=== PATIENT | male | born 1975 | race Caucasian/White ===

== ENCOUNTER 2021-04-15 08:12 | Inpatient (IN) | payer MEDICAID, SELFPAY ==
[2021-04-15] VITALS (8 sets, daily range): BP systolic 110–137; BP diastolic 68–91; PULSE 79–145; RESP 16–22; TEMP 36.4–37; O2SAT 96–99; BMI 26.4
--- NOTE | ~2021-04-15 | XR_ITS ---
EXAMINATION: XR CHEST CLINICAL INFORMATION: EtOH withdrawal COMPARISON: None TECHNIQUE: Frontal view of the chest was obtained. FINDINGS: No significant abnormality is noted involving the heart, lungs, mediastinum, bony thorax or soft tissues. XR/XR chest 1V IMPRESSION: Unremarkable chest examination.
--- NOTE | ~2021-04-15 | CT_ITS ---
EXAMINATION: CT HEAD WITHOUT CONTRAST CLINICAL INFORMATION: Status post seizure. COMPARISON: None TECHNIQUE: Contiguous axial imaging was performed from the skull base to vertex without intravenous administration of contrast. This CT examination was performed using dose optimization techniques as appropriate, variously including the following: *Automated exposure control *Adjustment of mA and/or kV according to patient size (this includes techniques or standardized protocols for targeted exams where dose is matched to indication/reason for exam; i.e. extremities or head) *Use of iterative reconstruction technique DLP: 714 mGy-cm FINDINGS: There is no evidence of acute intracranial hemorrhage or territorial infarction. No abnormal mass effect or midline shift is seen. Morgan to white matter differentiation is well preserved. No extra-axial fluid collections are identified. The ventricles are normal in size. There is no abnormal attenuation within the brain parenchyma. The osseous structures and soft tissues are normal. The mastoid air cells and visualized portions of the paranasal sinuses are well aerated. CT/CT head/brain wo con IMPRESSION: No acute intracranial process seen.
--- NOTE | 2021-04-15 08:21 | ECG_ITS ---
Test Reason : ETOH Blood Pressure : / mmHG Vent. Rate : 137 BPM Atrial Rate : 137 BPM P-R Int : 126 ms QRS Dur : 074 ms QT Int : 288 ms P-R-T Axes : 044 044 049 degrees QTc Int : 434 ms Sinus tachycardia Otherwise normal ECG When compared with ECG of 09-APR-2017 13:28, Heart rate has increased Referred By: Nicolette Reyes Electronically Signed By:FELICITY FIELD
--- NOTE | 2021-04-15 08:26 | ED.SEIZURE ---
HPI - Seizure General Chief Complaint: Seizure Stated Complaint: SEIZURE Time Seen by Provider: 04/15/21 08:20 Source: patient and EMS Mode of arrival: EMS Limitations: no limitations History of Present Illness HPI Narrative: 45-year-old male who drinks alcohol on a regular basis and known to alcohol withdrawal seizure, last alcohol drink was 2 days ago, patient brought in for evaluation of witnessed tonic-clonic seizure by his family. With postictal confusion, patient emergency department started to regain his consciousness becoming more coherent, patient is withdrawing on alcohol with tremors and tongue fasciculation. Patient declined headache, or neck pain. Related Data Allergies Allergy/AdvReac Type Severity Reaction Status Date / Time No Known Allergies Allergy Verified 04/15/21 08:42 [No Known Allergies*] Review of Systems Review of Systems: All other systems are reviewed and are negative Constitutional: Reports as per HPI and Reports no additional constitutional complaints Eyes: Reports as per HPI and Reports no additional eye complaints Reports system reviewed and no additional complaints, except as documented Cardiovascular: Reports as per HPI and Reports no additional cardiovascular complaints Respiratory: Reports as per HPI and Reports no additional respiratory complaints Gastrointestinal: Reports as per HPI and Reports no additional gastrointestinal complaints Genitourinary: Reports no additional female genitourinary complaints Musculoskeletal: Reports no additional musculoskeletal complaints Skin/Breast: Reports system reviewed and no additional complaints, except as docu Psychiatric: Reports no additional psychiatric complaints Endocrine: Reports no additional endocrine complaints Hematologic/Lymphatic: Reports no additional hematologic/lymphatic complaints Allergic/Immunologic: Reports no additional allergic/immunologic complaints Reports system reviewed and no additional complaints, except as documented and Reports Abnormal speech present [facility] Past Medical History Medical History (Updated 04/15/21 @ 10:07 by Nicolette Reyes MD) Neuropathy No known health problems Social History Social History Alcohol intake: current Alcohol type: beer and hard liquor Use of substances other than those prescribed or required for medical reasons: No Advance Directives: No Advance Directives Information Provided: Yes Physical Exam Vital Signs: Vital Signs: Last Vital Signs Temp 98.5 F 04/15/21 08:38 Pulse 135 H 04/15/21 09:19 Resp 18 04/15/21 09:19 BP 133/91 H 04/15/21 08:38 Pulse Ox 96 04/15/21 09:19 Body Mass Index 26.4 Vital signs have been reviewed as appeared to be correct. Blood pressure normal. Heart rate normal. Respiration rate normal. Temperature normal. Oxygen saturation normal. Appearance: Alert. Oriented X3. No acute distress. Head: Normal external exam. Normocephalic. Atraumatic. No Cespedes signs noted. No raccoon eyes noted Eyes: PERRLA. EOMI. Conjunctiva and sclera normal. Eyelids normal. ENT: TM's Normal. Pharynx normal. Uvula midline. Moist mucous membranes. No trismus noted. No drooling noted. No muffled voice noted. Neck: Normal inspection. Neck supple. FROM. No adenopathy. Thyroid Normal. No meningeal signs. No neck mass noted. CVS: Normal heart rate and rhythm. Heart sound normal. No murmurs noted. Pulses normal throughout. Respiratory: No respiratory distress. Painless inspiration. Breath sounds normal. No wheezes/rales/rhonchi noted. Chest nontender. No accessory muscle usage noted or decreased air movement noted. Abdomen: Soft and nontender. Bowel sounds normal in all 4 quadrants. No distention noted. No organomegaly noted. No visible injury noted. Back: No CVA tenderness. Full range of motion noted. Skin: Skin warm and dry. Normal skin color. Normal skin turgor. No rashes/lesions/lacerations noted. Extremities: No lower extremity edema. Extremities exhibit normal range of motion. Extremities nontender. Neuro: Oriented X 3. Cranial nerve exam: II-XII are grossly intact No motor deficit. No sensory deficit. Reflexes normal. Course Course Course Narrative: Assessment and plan. 45-year-old male with history of alcohol withdrawal, patient presented with 2 days of not drinking alcohol (patient normally a daily drinker) patient has witnessed seizure by his family. Start the patient on phenobarb and admit for alcohol withdrawal. MDM - Seizure Lab Data Attestation: I reviewed the patient's lab results. Result diagrams: 04/15/21 08:55 04/15/21 08:56 Labs: Lab Results 04/15/21 04/15/21 04/15/21 Range/Units 08:55 08:55 08:56 WBC 7.0 (4.8-10.8) X10*3/uL RBC 3.55 L (4.60-5.80) X10*6/uL Hgb 10.8 L (14.0-18.0) g/dl Hct 31.8 L (42-52) % MCV 89.6 (80-98) fL MCH 30.4 (27.0-33.0) pg MCHC 34.0 (31.0-36.0) g/dl RDW 16.4 H (11.0-16.0) % Plt Count 116 L (160-400) X10*3/uL MPV 9.6 (9.4-12.4) fL Immature Gran % (Auto) 0.3 (0.0-0.4) % Neut % (Auto) 81.6 H (45-73) % Lymph % (Auto) 13.2 L (20-40) % [place] % (Auto) 4.7 (2-11) % Eos % (Auto) 0.1 (0-4) % Baso % (Auto) 0.1 (0-2) % Lymph # (Auto) 0.9 L (1.2-4.9) X10*3/uL [place] # (Auto) 0.3 (0.1-1.2) X10*3/uL Eos # (Auto) 0.0 (0.0-0.4) X10*3/uL Baso # (Auto) 0.0 (0.0-0.2) X10*3/uL Abs Immat Gran (auto) 0.02 (0.00-0.03) X10*3/uL Absolute Neuts (auto) 5.7 (2.0-8.3) X10*3/uL Absolute Nucleated RBC 0.000 (0.0-0.012) X10*3/uL Nucleated RBC % (auto) 0.0 (0.0-0.2) /100WBC Sodium 140 (135-145) mmol/L Potassium 3.9 (3.3-5.1) mmol/L Chloride 101 (96-108) mmol/L Carbon Dioxide 22 (22-29) mmol/L Anion Gap 21 H (12-20) BUN 6 L (9-16) mg/dL Creatinine 0.87 (0.5-1.4) mg/dL Estim Creat Clear Calc 115.4 Estimated GFR > 60 Random Glucose 188 H (60-115) mg/dL Calcium 10.1 (8.4-10.2) mg/dL Total Bilirubin 1.0 (0.0-1.0) mg/dL Direct Bilirubin 0.4 (0.0-0.5) mg/dL AST 33 (5-37) U/L ALT 19 (0-40) U/L Alkaline Phosphatase 110 (39-117) U/L Total Protein 7.8 (6.5-8.0) g/dL Albumin 4.3 (3.5-5.0) g/dL Lipase 33 (8-78) U/L Ethyl Alcohol < 10 mg/dL Imaging Data Chest x-ray: Radiologist's impression: Unremarkable exam of her chest. ECG Data Interpretation: Sinus tachycardia at 137 beats per minutes, normal axis deviation, normal intervals, nonspecific T-wave changes. Discharge Plan Discharge Clinical Impression: Alcohol withdrawal, Seizure Patient Disposition: Admitted As Inpatient
[2021-04-15] MEDS: 0.9 % Sodium Chloride 1,000 ML 999 ML IVCONT (08:32)
[2021-04-15] MEDS: LORazepam 2 MG/ML VIAL IVPUSH (08:32)
[2021-04-15] MEDS: ondansetron HCL 4 MG/2 ML VIAL IVPUSH (08:32)
[2021-04-15 08:59] LABS: MANUAL DIFF FLAG NO
[2021-04-15 09:02] LABS: Basophils Percent Auto 0.1 % (0-2); Eosinophils Percent Auto 0.1 % (0-4); Hematocrit 31.8 % (42-52); Hemoglobin 10.8 g/dl (14.0-18.0); Imm Gran Abs Auto 0.02 X10*3/uL (0.00-0.03); Imm Gran Pct Auto 0.3 % (0.0-0.4); Lymphocytes Absolute Auto 0.9 X10*3/uL (1.2-4.9); Lymphocytes Percent Auto 13.2 % (20-40); Mean Corpuscular Hemoglobin 30.4 pg (27.0-33.0); Mean Corpuscular Volume 89.6 fL (80-98); Mean Platelet Volume 9.6 fL (9.4-12.4); Monocytes Absolute Auto 0.3 X10*3/uL (0.1-1.2); Monocytes Percent Auto 4.7 % (2-11); Neutrophils Absolute Auto 5.7 X10*3/uL (2.0-8.3); Neutrophils Percent Auto 81.6 % (45-73); Platelet Count 116 X10*3/uL (160-400); Red Blood Count 3.55 X10*6/uL (4.60-5.80); Red Cell Distribution Width 16.4 % (11.0-16.0)
[2021-04-15 09:24] LABS: Ethanol < 10 mg/dL
[2021-04-15 09:29] LABS: Alanine Aminotransferase 19 U/L (0-40); Albumin Level 4.3 g/dL (3.5-5.0); Alkaline Phosphatase 110 U/L (39-117); Anion Gap 21 (12-20); Aspartate Amino Transferase 33 U/L (5-37); Bilirubin Direct 0.4 mg/dL (0.0-0.5); Blood Urea Nitrogen 6 mg/dL (9-16); Calcium 10.1 mg/dL (8.4-10.2); Carbon Dioxide 22 mmol/L (22-29); Chloride 101 mmol/L (96-108); Creatinine Clr Calc Pharmacy 115.4; Estimated Glomerular Filt Rate > 60; Glucose Random 188 mg/dL (60-115); Lipase 33 U/L (8-78); Potassium 3.9 mmol/L (3.3-5.1); Sodium 140 mmol/L (135-145); Total Protein 7.8 g/dL (6.5-8.0)
[2021-04-15] MEDS: PHENobarbitaL sodium 130 MG/ML VIAL 300 MG IM (09:42)
--- NOTE | 2021-04-15 09:59 | PC.NURSE ---
On arrival pt noted to be diaphoretic and shaking, vomiting and tachycardic with HR 140s. States last ETOH 2 days ago but pt is somewhat unsure of last drink. Attempting to detox at home per pt. Pt medicated as charted and now appears less symptomatic at this time, less shaking noted and no diaphoresis. Phenobarb protocol initiated as charted. Drinking water, fluids continue to infuse. Remains tachycardic HR 122.
[2021-04-15 10:51] LABS: Influenza A PCR NEGATIVE (Negative); Influenza B PCR NEGATIVE (Negative); Resp Syncy Virus RNA Qual PCR NEGATIVE (Negative); SARS COV2 PCR INHOUSE NEGATIVE (Negative)
--- NOTE | 2021-04-15 11:35 | PC.NURSE ---
patient a&o, watching tv, calm/complaint, pt given large pitcher of water per pt request, equipment monitor phototypesetting sinus tach, vitals otherwise stable, will continue to monitor.
[2021-04-15 11:42] LABS: Magnesium 1.2 mg/dL (1.6-2.6)
[2021-04-15] MEDS: PHENobarbitaL sodium 130 MG/ML VIAL 225 MG IM ×2 (12:46→16:27)
--- NOTE | 2021-04-15 13:33 | P.HPHOSP_ITS ---
History of Present Illness Date of Service: 04/15/21 Chief Complaint: seizure History obtained from the patient as well as his mother by telephone. 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 Brought in by ambulance after a witnessed generalized seizure with LOC and postictal confusion per his family. No head trauma. By the time he arrived in the ED, his mental status returned to baseline but he was noted to be tremlous with tongue fasciculations and is thus being admitted for severe EtOH withdrawal. Denies fever, chills, headache, neck pain, dyspnea, cough, chest pain, nausea, vomiting, abd pain, or GI bleeding. He was started on phenobarbital load in the ED after getting 2mg of IV lorazepam and 1L of NS. Per his mother, last admission for EtOH withdrawal was in January at [facility]. He's been in court-mandated rehabilitation as well. He denies any other substance abuse. Review of Systems Review of Systems: Yes all other systems are reviewed and are negative PMFSH Medical History Neuropathy No known health problems Pertinent family history: no epilepsy Social History Alcohol intake: current Alcohol type: beer and hard liquor Use of substances other than those prescribed or required for medical reasons: No Advance Directives: No Advance Directives Information Provided: Yes Narrative: Pt on disability Meds Allergies Allergy/AdvReac Type Severity Reaction Status Date / Time No Known Allergies Allergy Verified 04/15/21 08:42 [No Known Allergies*] Active Medications: Current Medications Generic Name Dose Route Start Last Admin Trade Name Freq PRN Reason Stop Dose Admin Acetaminophen 650 mg 04/15/21 13:26 Acetaminophen 325 Mg Tablet PO Q6H PRN Pain, Mild (Pain Scale 1-3) Clonidine HCl 0.1 mg 04/15/21 13:30 Clonidine Hcl 0.1 Mg Tablet PO Q6H [facility] Protocol Enoxaparin Sodium 40 mg 04/15/21 13:30 Enoxaparin Sodium 40 Mg/0.4 Ml Syringe SUBCUT Q24H [facility] Folic Acid 1 mg 04/16/21 09:00 Folic Acid 1 Mg Tablet PO DAILY [facility] Gabapentin 600 mg 04/15/21 15:00 Gabapentin 300 Mg Capsule PO TID [facility] Medication 1 each 04/16/21 09:00 No Benzodiazepines MISCELLANE DAILY [facility] Multivitamins/Vitamin C 1 tab 04/16/21 09:00 Multivitamin Tablet PO DAILY [facility] Naltrexone HCl 50 mg 04/15/21 21:00 Naltrexone Hcl 50 Mg Tablet PO BEDTIME [facility] Non-Formulary Medication 1 tab 04/16/21 09:00 Pantoprazole PO DAILY [facility] Ondansetron HCl 4 mg 04/15/21 13:26 Ondansetron Hcl 4 Mg/2 Ml Vial IVPUSH Q8H PRN Nausea and Vomiting Phenobarbital 60 mg 04/16/21 09:00 Phenobarbital 30 Mg Tablet PO 04/17/21 21:01 BID [facility] Phenobarbital 30 mg 04/18/21 09:00 Phenobarbital 30 Mg Tablet PO 04/19/21 21:01 BID [facility] Phenobarbital 30 mg 04/20/21 09:00 Phenobarbital 30 Mg Tablet PO 04/21/21 09:01 DAILY [facility] Phenobarbital Sodium 225 mg 04/15/21 12:00 04/15/21 12:46 Phenobarbital Sodium 130 Mg/Ml Vial IM 04/15/21 15:01 225 mg Q3H [facility] Administration Pyridoxine HCl 50 mg 04/16/21 09:00 Pyridoxine Hcl (Vitamin B6) 50 Mg Tablet PO DAILY [facility] Sodium Chloride 3 ml 04/15/21 16:00 0.9 % Sodium Chloride Flush 3 Ml Syringe IVFLUSH QSHIFT [facility] Thiamine HCl 100 mg 04/16/21 09:00 Thiamine Hcl 100 Mg Tablet PO DAILY [facility] Home Medications Medication Instructions Recorded Confirmed Last Taken Type clonidine HCl 0.1 mg tablet 1 tab PO Q6H 04/15/21 04/15/21 Unknown History folic acid 1 mg tablet 1 tab PO DAILY 04/15/21 04/15/21 Unknown History gabapentin 300 mg capsule 2 cap PO TID 04/15/21 04/15/21 Unknown History naltrexone 50 mg tablet 1 tab PO BEDTIME 04/15/21 04/15/21 Unknown History pantoprazole 40 mg tablet,delayed 1 tab PO DAILY 04/15/21 04/15/21 Unknown History release pyridoxine (vitamin B6) 50 mg 50 mg PO DAILY 04/15/21 04/15/21 Unknown History tablet (Vitamin B-6) thiamine HCl (vitamin B1) 100 mg 100 mg PO DAILY 04/15/21 04/15/21 Unknown History tablet Physical Exam Vital Signs and Narrative: Vital Signs: Last Vital Signs Temp 98.2 F 04/15/21 11:30 Pulse 104 H 04/15/21 11:30 Resp 17 04/15/21 11:30 BP 137/78 04/15/21 11:30 Pulse Ox 98 04/15/21 11:30 Body Mass Index 26.4 Gen: tremulous HEENT: sclera anicteric, moist mucus membranes Neck: supple Lungs: clear to auscultation bilaterally Heart: tachycardic, no murmurs Abd: soft, non-tender, non-distended Ext: no edema Skin: warm/well-perfused Neuro: alert and oriented x3, no focal findings, no cerebellar signs Psych: appropriate affect Results Labs CBC and Chem 7: 04/15/21 08:55 04/15/21 08:56 Labs: Laboratory Results - last 24 hr 04/15/21 04/15/21 04/15/21 08:55 08:55 08:55 MCV 89.6 MCH 30.4 MCHC 34.0 RDW 16.4 H Plt Count 116 L MPV 9.6 Immature Gran % (Auto) 0.3 Neut % (Auto) 81.6 H Lymph % (Auto) 13.2 L [place] % (Auto) 4.7 Eos % (Auto) 0.1 Baso % (Auto) 0.1 Lymph # (Auto) 0.9 L [place] # (Auto) 0.3 Eos # (Auto) 0.0 Baso # (Auto) 0.0 Abs Immat Gran (auto) 0.02 Absolute Neuts (auto) 5.7 Absolute Nucleated RBC 0.000 Nucleated RBC % (auto) 0.0 Anion Gap Estim Creat Clear Calc Estimated GFR Random Glucose Calcium Magnesium Total Bilirubin Direct Bilirubin AST ALT Alkaline Phosphatase Total Protein Albumin Lipase Ethyl Alcohol < 10 Coronavirus (PCR) NEGATIVE Influenza Type A (PCR) NEGATIVE Influenza Type B (PCR) NEGATIVE RSV RNA Qual (PCR) NEGATIVE 04/15/21 08:56 MCV MCH MCHC RDW Plt Count MPV Immature Gran % (Auto) Neut % (Auto) Lymph % (Auto) [place] % (Auto) Eos % (Auto) Baso % (Auto) Lymph # (Auto) [place] # (Auto) Eos # (Auto) Baso # (Auto) Abs Immat Gran (auto) Absolute Neuts (auto) Absolute Nucleated RBC Nucleated RBC % (auto) Anion Gap 21 H Estim Creat Clear Calc 115.4 Estimated GFR > 60 Random Glucose 188 H Calcium 10.1 Magnesium 1.2 L* Total Bilirubin 1.0 Direct Bilirubin 0.4 AST 33 ALT 19 Alkaline Phosphatase 110 Total Protein 7.8 Albumin 4.3 Lipase 33 Ethyl Alcohol Coronavirus (PCR) Influenza Type A (PCR) Influenza Type B (PCR) RSV RNA Qual (PCR) Imaging Radiologist's Impressions: Impressions Chest X-Ray 04/15/21 08:20 IMPRESSION: Unremarkable chest examination. Head CT 04/15/21 10:04 IMPRESSION: No acute intracranial process seen. Assessment and Plan (1) Alcohol withdrawal: Qualifiers: Complication of substance-induced condition: with unspecified complication Qualified Code(s): F10.239 - Alcohol dependence with withdrawal, unspecified Status: Acute (2) Seizure: Status: Acute This 45 year-old man with longstanding alcohol use disorder and history of multiple admissions for alcohol withdrawal including seizures who is admitted with alcohol withdrawal after a witnessed generalized seizure. # severe EtOH withdrawal with seizure - phenobarbital taper, B vitamins, CARE Team and Addiction Medicine consultations # neuropathy - gabapentin # VTE ppx - LMWH # code - FULL Quality Stroke Does the patient have a stroke diagnosis?: No VTE Prior VTE?: No VTE Risk Level:: Medical - moderate - high VTE Device Contraindication: N/A - Device Ordered VTE Drug Contraindication: N/A - Med Ordered
[2021-04-15] MEDS: Gabapentin 300 MG CAPSULE 600 MG PO ×2 (14:04→20:25)
[2021-04-15] MEDS: cloNIDine HCL 0.1 MG TABLET PO ×2 (14:04→20:25)
[2021-04-15] MEDS: Magnesium Sulfate/H2O 2 GM/50 ML PIGGYBACK IV (14:04)
[2021-04-15] MEDS: Enoxaparin Sodium 40 MG/0.4 ML SYRINGE SUBCUT (14:05)
--- NOTE | 2021-04-15 14:06 | PC.NURSE ---
patient a&o, cloth bleaching range operator chief nsr to sinus tach 90s-105, pt medicated per order, will continue to monitor.
--- NOTE | 2021-04-15 14:35 | MHC.RECOVSUP ---
Recovery Support note: Patient is a 45 year old Colombian speaking male who presented to [facility] ED due to withdrawal symptoms and is awaiting a medical admission. This greeting card writer met with patient in ED11 to discuss his alcohol use and recovery support. Patient reports he has consumed alcohol for most of his life with his longest periods of sobriety being 30-60 days at different points in time. Patient reports it was not hard to maintain sobriety. Patient reports he previously lived in [place] and worked as a drug and alcohol counselor. Patient reports his due to substance use. Patient is open to hearing about recovery supports in the area and this greeting card writer will follow up with patient tomorrow to discuss this further.
[2021-04-15] MEDS: 0.9 % Sodium Chloride Flush 3 ML SYRINGE IVFLUSH (16:29)
--- NOTE | 2021-04-15 16:32 | PC.NURSE ---
pt ambulated in the ED with assist- pt has unsteady gait, pt remains sinus tach on the monitoring and evaluation advisor. pt medicated per order, recovery support team in and spoke briefly with patient and told him they would check back in with him tomm. report given to floor, pt ready to be transported to floor
[2021-04-15 21:18] LABS: Glucose Urine UA NEG (NEG); Leukocyte Esterase Urine NEG (NEG); Nitrite Urine NEG (NEG); PH 7.5 (5.0-8.0); Urine Blood NEG (NEG); Urine Ketones NEG (NEG); Urine Protein NEG (NEG-TRACE)
[2021-04-15 21:23] LABS: Appearance Urine HAZY; Color Urine YELLOW
[2021-04-15 21:48] LABS: Amphetamine Screen Urine Not Detected (Not Detect); Barbiturates, Urine POSITIVE (Not Detect); Benzodiazepines Screen Urine Not Detected (Not Detect); Cannabinoid Screen Urine Not Detected (Not Detect); Cocaine Screen Urine Not Detected (Not Detect); Fentanyl, urine Not Detected (Not Detect); Opiate Screen Urine Not Detected (Not Detect); Phencyclidine Screen Urine Not Detected (Not Detect)
[2021-04-16] VITALS (10 sets, daily range): BP systolic 92–121; BP diastolic 57–82; PULSE 76–94; RESP 18–20; TEMP 36.2–37.5; O2SAT 96–100
[2021-04-16] MEDS: 0.9 % Sodium Chloride Flush 3 ML SYRINGE IVFLUSH ×3 (00:37→15:15)
[2021-04-16] MEDS: cloNIDine HCL 0.1 MG TABLET PO ×3 (00:39→12:35)
[2021-04-16] MEDS: Omeprazole 20 MG CAPSULE.DR PO (05:31)
[2021-04-16 05:52] LABS: Hemoglobin 9.9 g/dl (14.0-18.0); Mean Corpuscular Volume 91.4 fL (80-98); PLT CLUMP 1; Red Cell Distribution Width 16.4 % (11.0-16.0)
[2021-04-16 05:54] LABS: Hematocrit 29.9 % (42-52); Mean Corpuscular HGB Conc 33.1 g/dl (31.0-36.0); Mean Corpuscular Hemoglobin 30.3 pg (27.0-33.0); Mean Platelet Volume 10.6 fL (9.4-12.4); Platelet Count 118 X10*3/uL (160-400); Red Blood Count 3.27 X10*6/uL (4.60-5.80); White Blood Count 6.4 X10*3/uL (4.8-10.8)
[2021-04-16 06:24] LABS: Anion Gap 13 (12-20); Blood Urea Nitrogen 8 mg/dL (9-16); Calcium 8.9 mg/dL (8.4-10.2); Carbon Dioxide 27 mmol/L (22-29); Chloride 99 mmol/L (96-108); Creatinine Clr Calc Pharmacy 120.9; Estimated Glomerular Filt Rate > 60; Glucose Random 96 mg/dL (60-115); Magnesium 1.7 mg/dL (1.6-2.6); Potassium 3.8 mmol/L (3.3-5.1); Sodium 135 mmol/L (135-145)
[2021-04-16] MEDS: Pyridoxine HCl (Vitamin B6) 50 MG TABLET PO (08:56)
[2021-04-16] MEDS: Folic Acid 1 MG TABLET PO (08:56)
[2021-04-16] MEDS: PHENobarbitaL 30 MG TABLET 60 MG PO ×2 (08:56→19:58)
[2021-04-16] MEDS: Multivitamin TABLET 1 TAB PO (08:56)
[2021-04-16] MEDS: Gabapentin 300 MG CAPSULE 600 MG PO ×3 (08:57→19:58)
[2021-04-16] MEDS: Thiamine HCL 100 MG TABLET PO (09:00)
--- NOTE | 2021-04-16 09:11 | HO.PM.IMPN ---
Subjective Subjective Date of Service: 04/16/21 Interval History: F/u on alcohol withdrwal, no Psychomotor agitation, tremors Review of Systems Gen: no fever Resp: no sob, no cough CV: no chest, no ADAMS, no leg edema GI: No n/v, no abd pain Neuro: No confusion, no seizure Physical Exam Vital Signs: Vital Signs: Last Vital Signs Temp 97.4 F 04/16/21 07:53 Pulse 88 04/16/21 07:53 Resp 19 04/16/21 07:53 BP 118/82 04/16/21 08:58 Pulse Ox 96 04/16/21 07:53 Body Mass Index 26.4 Gen: tremulous HEENT: sclera anicteric, moist mucus membranes Neck: supple Lungs: clear to auscultation bilaterally Heart: tachycardic, no murmurs Abd: soft, non-tender, non-distended Ext: no edema Skin: warm/well-perfused Neuro: alert and oriented x3, no focal findings, no cerebellar signs, fine tremors in the hand Psych: appropriate affect ? Objective Data Current Medications Generic Name Dose Route Start Last Admin Trade Name Freq PRN Reason Stop Dose Admin Acetaminophen 650 mg 04/15/21 13:26 Acetaminophen 325 Mg Tablet PO Q6H PRN Pain, Mild (Pain Scale 1-3) Clonidine HCl 0.1 mg 04/15/21 13:30 04/16/21 08:58 Clonidine Hcl 0.1 Mg Tablet PO 0.1 mg Q6H [facility] Administration Protocol Enoxaparin Sodium 40 mg 04/15/21 13:30 04/15/21 14:05 Enoxaparin Sodium 40 Mg/0.4 Ml Syringe SUBCUT 40 mg Q24H [facility] Administration Folic Acid 1 mg 04/16/21 09:00 04/16/21 08:56 Folic Acid 1 Mg Tablet PO 1 mg DAILY [facility] Administration Gabapentin 600 mg 04/15/21 15:00 04/16/21 08:57 Gabapentin 300 Mg Capsule PO 600 mg TID [facility] Administration Medication 1 each 04/16/21 09:00 No Benzodiazepines MISCELLANE DAILY [facility] Multivitamins/Vitamin C 1 tab 04/16/21 09:00 04/16/21 08:56 Multivitamin Tablet PO 1 tab DAILY [facility] Administration Omeprazole 20 mg 04/16/21 06:30 04/16/21 05:31 Omeprazole 20 Mg Capsule. PO 20 mg DAILY@0630 [facility] Administration Ondansetron HCl 4 mg 04/15/21 13:26 Ondansetron Hcl 4 Mg/2 Ml Vial IVPUSH Q8H PRN Nausea and Vomiting Phenobarbital 60 mg 04/16/21 09:00 04/16/21 08:56 Phenobarbital 30 Mg Tablet PO 04/17/21 21:01 60 mg BID [facility] Administration Phenobarbital 30 mg 04/18/21 09:00 Phenobarbital 30 Mg Tablet PO 04/19/21 21:01 BID [facility] Phenobarbital 30 mg 04/20/21 09:00 Phenobarbital 30 Mg Tablet PO 04/21/21 09:01 DAILY [facility] Pyridoxine HCl 50 mg 04/16/21 09:00 04/16/21 08:56 Pyridoxine Hcl (Vitamin B6) 50 Mg Tablet PO 50 mg DAILY [facility] Administration Sodium Chloride 3 ml 04/15/21 16:00 04/16/21 08:55 0.9 % Sodium Chloride Flush 3 Ml Syringe IVFLUSH 3 ml QSHIFT [facility] Administration Thiamine HCl 100 mg 04/16/21 09:00 04/16/21 09:00 Thiamine Hcl 100 Mg Tablet PO 100 mg DAILY [facility] Administration Labs CBC & Chem 7: 04/16/21 05:07 04/16/21 05:07 Labs: Laboratory Results - last 24 hr 04/15/21 04/15/21 04/15/21 08:55 08:55 08:56 MCV MCH MCHC RDW Plt Count MPV Absolute Nucleated RBC Nucleated RBC % (auto) Anion Gap 21 H Estim Creat Clear Calc 115.4 Estimated GFR > 60 Random Glucose 188 H Calcium 10.1 Magnesium 1.2 L* Total Bilirubin 1.0 Direct Bilirubin 0.4 AST 33 ALT 19 Alkaline Phosphatase 110 Total Protein 7.8 Albumin 4.3 Lipase 33 Urine Color Urine Appearance Urine pH Ur Specific [place] Urine Protein Urine Glucose (UA) Urine Ketones Urine Blood Urine Nitrite Ur Leukocyte Esterase Urine Opiates Screen Urine Fentanyl Screen Ur Barbiturates Screen Ur Phencyclidine Scrn Ur Amphetamines Screen U Benzodiazepines Scrn Urine Cocaine Screen U Marijuana (THC) Screen Ethyl Alcohol < 10 Coronavirus (PCR) NEGATIVE Influenza Type A (PCR) NEGATIVE Influenza Type B (PCR) NEGATIVE RSV RNA Qual (PCR) NEGATIVE 04/15/21 04/15/21 04/16/21 21:03 21:03 05:07 MCV 91.4 MCH 30.3 MCHC 33.1 RDW 16.4 H Plt Count 118 L MPV 10.6 Absolute Nucleated RBC 0.000 Nucleated RBC % (auto) 0.0 Anion Gap Estim Creat Clear Calc Estimated GFR Random Glucose Calcium Magnesium Total Bilirubin Direct Bilirubin AST ALT Alkaline Phosphatase Total Protein Albumin Lipase Urine Color YELLOW Urine Appearance HAZY Urine pH 7.5 Ur Specific [place] 1.010 Urine Protein NEG Urine Glucose (UA) NEG Urine Ketones NEG Urine Blood NEG Urine Nitrite NEG Ur Leukocyte Esterase NEG Urine Opiates Screen Not Detected Urine Fentanyl Screen Not Detected Ur Barbiturates Screen POSITIVE H Ur Phencyclidine Scrn Not Detected Ur Amphetamines Screen Not Detected U Benzodiazepines Scrn Not Detected Urine Cocaine Screen Not Detected U Marijuana (THC) Screen Not Detected Ethyl Alcohol Coronavirus (PCR) Influenza Type A (PCR) Influenza Type B (PCR) RSV RNA Qual (PCR) 04/16/21 05:07 MCV MCH MCHC RDW Plt Count MPV Absolute Nucleated RBC Nucleated RBC % (auto) Anion Gap 13 Estim Creat Clear Calc 120.9 Estimated GFR > 60 Random Glucose 96 D Calcium 8.9 D Magnesium 1.7 Total Bilirubin Direct Bilirubin AST ALT Alkaline Phosphatase Total Protein Albumin Lipase Urine Color Urine Appearance Urine pH Ur Specific [place] Urine Protein Urine Glucose (UA) Urine Ketones Urine Blood Urine Nitrite Ur Leukocyte Esterase Urine Opiates Screen Urine Fentanyl Screen Ur Barbiturates Screen Ur Phencyclidine Scrn Ur Amphetamines Screen U Benzodiazepines Scrn Urine Cocaine Screen U Marijuana (THC) Screen Ethyl Alcohol Coronavirus (PCR) Influenza Type A (PCR) Influenza Type B (PCR) RSV RNA Qual (PCR) Assessment and Plan (1) Alcohol withdrawal: Status: Acute (2) Seizure: Status: Acute Assessment and Plan: 45 year-old man with longstanding alcohol use disorder and history of multiple admissions for alcohol withdrawal including seizures who is admitted with alcohol withdrawal after a witnessed generalized seizure. # severe EtOH withdrawal with seizure, - phenobarbital taper, B vitamins, CARE Team and Addiction Medicine consultations # neuropathy - gabapentin # VTE ppx - LMWH # code - FULL discharge tomorrow Quality Stroke Does the patient have a stroke diagnosis?: No VTE Prior VTE?: No VTE Risk Level:: Medical - moderate - high VTE Device Contraindication: N/A - Device Ordered VTE Drug Contraindication: N/A - Med Ordered
--- NOTE | 2021-04-16 09:18 | MHC.CM.PN ---
CM met with Patient at bedside. Patient is here with ETOH and may benefit from a CARE TEAM CONSULT, Patient lives in a house with his Parents and he uses a cane on occasion to assist with mobility. Patient's goal for dc is home/no services and CM has initiated and will follow for dc planning. PCP is DR. Narciso Aguilar and present HCP is Sister.Kimber Ochoa.Patient is applying for Disability r/t his LE Neuropathy.
[2021-04-16] MEDS: Enoxaparin Sodium 40 MG/0.4 ML SYRINGE SUBCUT (12:35)
--- NOTE | 2021-04-16 15:04 | MHC.RECOVSUP ---
Recovery Support note: This blog writer followed up with patient in [id number] to discuss his recovery. Patient reports he typically weans his consumption down slowly before periods of sobriety. Patient reports he tried to go cold turkey this time and that he has a seizure as a result. Patient reports a desire to stop drinking and to get into recovery. Patient acknowledges the negative effect alcohol has on his health and the consequences of heavy alcohol consumption. Patient reports his alcoholism has put a strain on his relationships and that his family and neighbors are worried about him. Patient reports periods of sobriety ranging from 30-90 days in the past. Patient reports he had a DUI in [place] and that he had to attend court mandated groups. Patient states the groups were helpful and that he also found outpatient counseling helpful. Discussed intensive outpatient programs and outpatient counseling with patient. Patient reports he does not have a computer but that he plans to buy one with the money he saves by not drinking. Patient reports he has a smart phone that he can utilize to get connected with supports. Patient accepted information on IOP and AA. Patient reports he attended AA in the past and had a sponsor. Patient reports I was doing really good when I had a sponsor and he hopes to get connected with one again. Discussed [facility] with patient and provided him with a calendar of groups. Patient reports transportation is difficult, stating that he cannot drive because of his neuropathy and that his father does not want to leave his mother alone. Patient is agreeable to meeting with a [employer] Mechanic while in the hospital. Discussed medications for alcohol use disorder with patient. Patient reports that he believes he was on naltrexone in the past however is not positive, stating I've been on so many medications. Patient is interested in getting started on naltrexone. Discussed the CCC and JENI with patient. Discussed case with patient's RN and Venessa Molina NP. Plan for Recovery Support Team to follow up with patient prior to discharge to discuss JENI further.
--- NOTE | 2021-04-16 18:31 | MHC.RECOVSUP ---
? Reason for consult o Current location: [facility] o Identified substance use concern: Alcohol - Support ? Intervention: o Community resources provided o Harm reduction discussion ? Plan: o Patient to follow up with H after discharge ? Additional information: Met with Patient and we talk about recovery and Harm reduction... Patient was given Resources where he can get support on his recovery. Patient also wants a soccer coach.. a Referral was made..
--- NOTE | 2021-04-16 19:39 | PC.NURSE ---
Non-Compliance Pt refused to have camera in room as he said it made him feel uncomfortable. Pt also complaining about his bed alarm as he wants to move around freely. He was educated about his seizure precaution as he did come in for a seizure. Pt also pulled out his IV twice and kept saying it was getting hitched.
[2021-04-16] MEDS: Acetaminophen 325 MG TABLET 650 MG PO (19:58)
[2021-04-17] VITALS (7 sets, daily range): BP systolic 94–136; BP diastolic 48–84; PULSE 71–108; RESP 17–20; TEMP 36.7–36.9; O2SAT 98–100
[2021-04-17] MEDS: Omeprazole 20 MG CAPSULE.DR PO (06:28)
[2021-04-17] MEDS: 0.9 % Sodium Chloride Flush 3 ML SYRINGE IVFLUSH ×4 (08:22→20:02)
[2021-04-17] MEDS: Thiamine HCL 100 MG TABLET PO (09:24)
[2021-04-17] MEDS: Multivitamin TABLET 1 TAB PO (09:24)
[2021-04-17] MEDS: Pyridoxine HCl (Vitamin B6) 50 MG TABLET PO (09:24)
[2021-04-17] MEDS: Gabapentin 300 MG CAPSULE 600 MG PO ×3 (09:24→20:01)
[2021-04-17] MEDS: Folic Acid 1 MG TABLET PO (09:24)
[2021-04-17] MEDS: PHENobarbitaL 30 MG TABLET 60 MG PO ×2 (09:24→20:01)
[2021-04-17] MEDS: PHENobarbitaL sodium 65 MG/ML VIAL 30 MG IM (10:47)
--- NOTE | 2021-04-17 12:31 | P.PNIM_ITS ---
Subjective Subjective Date of Service: 04/17/21 Interval History: F/u on alcohol withdrwal, very agitated, tremulous and confused this morning, Review of Systems confused, agitated, tremulous. Physical Exam Vital Signs: Vital Signs: Last Vital Signs Temp 98.3 F 04/17/21 12:00 Pulse 84 04/17/21 12:00 Resp 18 04/17/21 12:00 BP 96/58 L 04/17/21 12:00 Pulse Ox 99 04/17/21 12:00 Body Mass Index 26.4 Gen: tremulous HEENT: sclera anicteric, moist mucus membranes Neck: supple Lungs: clear to auscultation bilaterally Heart: tachycardic, no murmurs Abd: soft, non-tender, non-distended Ext: no edema Skin: warm/well-perfused Neuro: alert and oriented x3, no focal findings, no cerebellar signs, fine tremors in the hand Psych: appropriate affect Objective Data Current Medications Generic Name Dose Route Start Last Admin Trade Name Freq PRN Reason Stop Dose Admin Acetaminophen 650 mg 04/15/21 13:26 04/16/21 19:58 Acetaminophen 325 Mg Tablet PO 650 mg Q6H PRN Administration Pain, Mild (Pain Scale 1-3) Clonidine HCl 0.1 mg 04/15/21 13:30 04/17/21 08:23 Clonidine Hcl 0.1 Mg Tablet PO Not Given Q6H [facility] Protocol Enoxaparin Sodium 40 mg 04/15/21 13:30 04/16/21 12:35 Enoxaparin Sodium 40 Mg/0.4 Ml Syringe SUBCUT 40 mg Q24H JAMES Administration Folic Acid 1 mg 04/16/21 09:00 04/17/21 09:24 Folic Acid 1 Mg Tablet PO 1 mg DAILY JAMES Administration Gabapentin 600 mg 04/15/21 15:00 04/17/21 09:24 Gabapentin 300 Mg Capsule PO 600 mg TID JAMES Administration Medication 1 each 04/16/21 09:00 No Benzodiazepines MISCELLANE DAILY [facility] Multivitamins/Vitamin C 1 tab 04/16/21 09:00 04/17/21 09:24 Multivitamin Tablet PO 1 tab DAILY JAMES Administration Omeprazole 20 mg 04/16/21 06:30 04/17/21 06:28 Omeprazole 20 Mg Capsule. PO 20 mg DAILY@0630 JAMES Administration Ondansetron HCl 4 mg 04/15/21 13:26 Ondansetron Hcl 4 Mg/2 Ml Vial IVPUSH Q8H PRN Nausea and Vomiting Phenobarbital 60 mg 04/16/21 09:00 04/17/21 09:24 Phenobarbital 30 Mg Tablet PO 04/17/21 21:01 60 mg BID JAMES Administration Phenobarbital 30 mg 04/18/21 09:00 Phenobarbital 30 Mg Tablet PO 04/19/21 21:01 BID JAMES Phenobarbital 30 mg 04/20/21 09:00 Phenobarbital 30 Mg Tablet PO 04/21/21 09:01 DAILY JAMES Pyridoxine HCl 50 mg 04/16/21 09:00 04/17/21 09:24 Pyridoxine Hcl (Vitamin B6) 50 Mg Tablet PO 50 mg DAILY JAMES Administration Sodium Chloride 3 ml 04/15/21 16:00 04/17/21 08:22 0.9 % Sodium Chloride Flush 3 Ml Syringe IVFLUSH 3 ml QSHIFT JAMES Administration Thiamine HCl 100 mg 04/16/21 09:00 04/17/21 09:24 Thiamine Hcl 100 Mg Tablet PO 100 mg DAILY JAMES Administration Labs CBC & Chem 7: 04/16/21 05:07 04/16/21 05:07 Assessment and Plan (1) Alcohol withdrawal: Status: Acute (2) Seizure: Status: Acute Assessment and Plan: 45 year-old man with longstanding alcohol use disorder and history of multiple admissions for alcohol withdrawal including seizures who is admitted with alcohol withdrawal after a witnessed generalized seizure. # severe EtOH withdrawal with seizure, - phenobarbital taper, B vitamins, CARE Team and Addiction Medicine co nsultations--additional Phenobarb today # neuropathy - gabapentin # VTE ppx - LMWH # code - FULL discharge tomorrow Quality Stroke Does the patient have a stroke diagnosis?: No VTE Prior VTE?: No VTE Risk Level:: Medical - moderate - high VTE Device Contraindication: N/A - Device Ordered VTE Drug Contraindication: N/A - Med Ordered
--- NOTE | 2021-04-17 12:38 | HO.ADDICT_ITS ---
History of Present Illness Date of Service: 04/17/2021 Chief Complaint: ETOH WD SZ Reason for Consult: Alcohol use disorder eval and treatment reccommendations Requesting physician: Ceferino Zelaya Discussed with referring provider: No (discussed with covering provider ) Sources of Information: patient interviewed and chart reviewed HPI Narrative: Patient is a 45 yr old male with alcohol ude disorder currently medically admitted with sever alcohol withdrawal including witnessed seizure. Most information obtained from chart review as it was quite challenging to illicit any information from patient. Patient twas seen in room 458 with Recovery Support RN present, he was awake, alert and oriented to person and place and situation--though he reported kelsey eving that he thought he was actually dreaming that he was in a hospital and not actually in a hospital. He alternated between walking around the room and sitting down during the entire interview, he was unable to remain on topic or answer questions due to being tangential. Somewhat irritable.. He reported that he has decreased alcohol intake, but unable to report how much he was or currently is drinking. Discussed Naltrexone with patient as medication history shows that he was being prescribed this by PCP, initially denied ever being on this medication then remembered he was on it, but I think the dose was too low . When asked if he was open to restarting this medication while in the hospital, he agreed. Past Psychiatric History: not reviewed Personal & Social History: per chart review history of section 35 commitment, unclear when this was. Review of Systems Review of Systems no complaints reported by patient at time of interview Diagnostics Vital Signs (24Hr): Vital Signs - 24 hr 04/16/21 16:00 04/16/21 19:19 04/16/21 19:59 Temperature 98.9 F 99.5 F Pulse Rate 76 82 82 Respiratory Rate 18 18 Blood Pressure 98/60 92/70 92/70 Pulse Oximetry 99 99 04/16/21 23:40 04/16/21 23:43 04/17/21 01:26 Temperature 97.9 F Pulse Rate 94 71 Respiratory Rate 19 Blood Pressure 94/75 94/75 Pulse Oximetry 100 04/17/21 03:43 04/17/21 07:35 04/17/21 12:00 Temperature 98.3 F 98.5 F 98.3 F Pulse Rate 108 H 92 84 Respiratory Rate 18 17 18 Blood Pressure 100/48 L 116/55 L 96/58 L Pulse Oximetry 100 100 99 Body Mass Index 26.4 Labs Results: 04/16/21 05:07 04/16/21 05:07 Labs: Laboratory Results - last 48 hr 04/15/21 04/15/21 04/16/21 21:03 21:03 05:07 WBC 6.4 RBC 3.27 L Hgb 9.9 L Hct 29.9 L MCV 91.4 MCH 30.3 MCHC 33.1 RDW 16.4 H Plt Count 118 L MPV 10.6 Absolute Nucleated RBC 0.000 Nucleated RBC % (auto) 0.0 Sodium Potassium Chloride Carbon Dioxide Anion Gap BUN Creatinine Estim Creat Clear Calc Estimated GFR Random Glucose Calcium Magnesium Urine Color YELLOW Urine Appearance HAZY Urine pH 7.5 Ur Specific [place] 1.010 Urine Protein NEG Urine Glucose (UA) NEG Urine Ketones NEG Urine Blood NEG Urine Nitrite NEG Ur Leukocyte Esterase NEG Urine Opiates Screen Not Detected Urine Fentanyl Screen Not Detected Ur Barbiturates Screen POSITIVE H Ur Phencyclidine Scrn Not Detected Ur Amphetamines Screen Not Detected U Benzodiazepines Scrn Not Detected Urine Cocaine Screen Not Detected U Marijuana (THC) Screen Not Detected 04/16/21 05:07 WBC RBC Hgb Hct MCV MCH MCHC RDW Plt Count MPV Absolute Nucleated RBC Nucleated RBC % (auto) Sodium 135 Potassium 3.8 Chloride 99 Carbon Dioxide 27 Anion Gap 13 BUN 8 L Creatinine 0.83 Estim Creat Clear Calc 120.9 Estimated GFR > 60 Random Glucose 96 D Calcium 8.9 D Magnesium 1.7 Urine Color Urine Appearance Urine pH Ur Specific [place] Urine Protein Urine Glucose (UA) Urine Ketones Urine Blood Urine Nitrite Ur Leukocyte Esterase Urine Opiates Screen Urine Fentanyl Screen Ur Barbiturates Screen Ur Phencyclidine Scrn Ur Amphetamines Screen U Benzodiazepines Scrn Urine Cocaine Screen U Marijuana (THC) Screen Imaging Radiology Impressions: ITS Impressions Chest X-Ray 04/15/21 08:20 IMPRESSION: Unremarkable chest examination. Head CT 04/15/21 10:04 IMPRESSION: No acute intracranial process seen. Mental Status Exam Mental Status Exam Patient Appearance: Disheveled (soiled tshirt and hospital pants ) Level of Consciousness: Awake, Restless and Alert Patient Behavior: Talkative, Restless, Confused and Pacing Mood Description: Flat Affect Description: Flat Speech Pattern: Rambling and Cofabulation Thought Process: Distracted Thought Content: positive for [place], positive for Circumstantial and positive for Tangential Judgement: Fair Medications Medications Current Medications Generic Name Dose Route Start Last Admin Trade Name Freq PRN Reason Stop Dose Admin Acetaminophen 650 mg 04/15/21 13:26 04/16/21 19:58 Acetaminophen 325 Mg Tablet PO 650 mg Q6H PRN Administration Pain, Mild (Pain Scale 1-3) Clonidine HCl 0.1 mg 04/15/21 13:30 04/17/21 08:23 Clonidine Hcl 0.1 Mg Tablet PO Not Given Q6H [facility] Protocol Enoxaparin Sodium 40 mg 04/15/21 13:30 04/16/21 12:35 Enoxaparin Sodium 40 Mg/0.4 Ml Syringe SUBCUT 40 mg Q24H [facility] Administration Folic Acid 1 mg 04/16/21 09:00 04/17/21 09:24 Folic Acid 1 Mg Tablet PO 1 mg DAILY [facility] Administration Gabapentin 600 mg 04/15/21 15:00 04/17/21 09:24 Gabapentin 300 Mg Capsule PO 600 mg TID [facility] Administration Medication 1 each 04/16/21 09:00 No Benzodiazepines MISCELLANE DAILY [facility] Multivitamins/Vitamin C 1 tab 04/16/21 09:00 04/17/21 09:24 Multivitamin Tablet PO 1 tab DAILY [facility] Administration Omeprazole 20 mg 04/16/21 06:30 04/17/21 06:28 Omeprazole 20 Mg Capsule. PO 20 mg DAILY@0630 [facility] Administration Ondansetron HCl 4 mg 04/15/21 13:26 Ondansetron Hcl 4 Mg/2 Ml Vial IVPUSH Q8H PRN Nausea and Vomiting Phenobarbital 60 mg 04/16/21 09:00 04/17/21 09:24 Phenobarbital 30 Mg Tablet PO 04/17/21 21:01 60 mg BID JAMES Administration Phenobarbital 30 mg 04/18/21 09:00 Phenobarbital 30 Mg Tablet PO 04/19/21 21:01 BID JAMES Phenobarbital 30 mg 04/20/21 09:00 Phenobarbital 30 Mg Tablet PO 04/21/21 09:01 DAILY JAMES Pyridoxine HCl 50 mg 04/16/21 09:00 04/17/21 09:24 Pyridoxine Hcl (Vitamin B6) 50 Mg Tablet PO 50 mg DAILY [facility] Administration Sodium Chloride 3 ml 04/15/21 16:00 04/17/21 08:22 0.9 % Sodium Chloride Flush 3 Ml Syringe IVFLUSH 3 ml QSHIFT JAMES Administration Thiamine HCl 100 mg 04/16/21 09:00 04/17/21 09:24 Thiamine Hcl 100 Mg Tablet PO 100 mg DAILY JAMES Administration Allergies Allergies Allergy/AdvReac Type Severity Reaction Status Date / Time No Known Allergies Allergy Verified 04/15/21 08:42 [No Known Allergies*] Assessment & Plan Assessment & Plan (1) Alcohol use disorder, severe, dependence: Status: Acute Code(s): F10.20 - Alcohol dependence, uncomplicated Assessment and Plan: * restart naltrexone 50mg QD * patient has already met with RS team and has resources * discussed case with hospitalist, regarding plan and concern regarding mental status 35 mins with latoya rodriguez coordinating care Greater than 50% of the session was spent on counseling and/or coordination of care PMFSH Past Medical History Medical History Neuropathy No known health problems Social History Social History Household Members: Family Housing: House Alcohol intake: current Alcohol type: beer and hard liquor Patient Tobacco Use Status: Current someday Tobacco user Tobacco use type: Cigarette Cigarettes Per Day: 1 Smoked in Last 30 Days: Yes e-Cigarette/Vaping Use: Never Used Patient Interested in Nicotine Replacement: No Use of substances other than those prescribed or required for medical reasons: No Currently Displaying Signs/Symptoms of Drug Intoxication Withdrawal: No Have you been hit, kicked, punched, or otherwise hurt by someone within the past year? If so, by whom?: No Do you feel safe in your current relationship?: No Current Relationship Is there a partner from a previous relationship who is making you feel unsafe now?: No Are you made to feel afraid or neglected: No Advance Directives: No Advance Directives Information Provided: Yes Do you have thoughts of harming others: None Do you have a plan to hurt others: No Plan Recently lost weight without trying: No service: No Current occupational status: unemployed
[2021-04-17] MEDS: Enoxaparin Sodium 40 MG/0.4 ML SYRINGE SUBCUT (14:06)
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
[2021-04-17] MEDS: Nicotine 21 MG PATCH.TD24 TRANSDERMA (21:02)
[2021-04-18] VITALS (9 sets, daily range): BP systolic 101–130; BP diastolic 58–78; PULSE 86–120; RESP 16–18; TEMP 36.5–36.9; O2SAT 98–100
[2021-04-18] MEDS: cloNIDine HCL 0.1 MG TABLET PO ×4 (00:57→21:27)
[2021-04-18] MEDS: Omeprazole 20 MG CAPSULE.DR PO (05:18)
[2021-04-18] MEDS: PHENobarbitaL 30 MG TABLET PO ×2 (08:03→21:27)
[2021-04-18] MEDS: Nicotine 21 MG PATCH.TD24 TRANSDERMA (08:04)
[2021-04-18] MEDS: Folic Acid 1 MG TABLET PO (08:05)
[2021-04-18] MEDS: Pyridoxine HCl (Vitamin B6) 50 MG TABLET PO (08:06)
[2021-04-18] MEDS: Thiamine HCL 100 MG TABLET PO (08:06)
[2021-04-18] MEDS: Gabapentin 300 MG CAPSULE 600 MG PO ×3 (08:13→21:27)
[2021-04-18] MEDS: Multivitamin TABLET 1 TAB PO (08:13)
--- NOTE | 2021-04-18 13:29 | HO.PM.IMPN ---
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 Otherwise answers most of the questions denies any chest pain or shortness of breath or abdominal pain or fever chills. Physical Exam Vital Signs: Vital Signs: Last Vital Signs Temp 98.1 F 04/18/21 11:20 Pulse 120 H 04/18/21 11:20 Resp 18 04/18/21 11:20 BP 128/78 04/18/21 11:20 Pulse Ox 98 04/18/21 11:20 Body Mass Index 26.4 Physical exam: Constitutional: Not in acute distress Cvs: rrr, [id number] , no murmur res: clear to auscultation ,no rhonchii or wheezing abd: no rebound or guarding ,nt, bs present. ext pulses present , no cyanosis neuro: axo3 , nonfocal.somewhat confused Objective Data Current Medications Generic Name Dose Route Start Last Admin Trade Name Calin PRN Reason Stop Dose Admin Acetaminophen 650 mg 04/15/21 13:26 04/16/21 19:58 Acetaminophen 325 Mg Tablet PO 650 mg Q6H PRN Administration Pain, Mild (Pain Scale 1-3) Clonidine HCl 0.1 mg 04/15/21 13:30 04/18/21 08:12 Clonidine Hcl 0.1 Mg Tablet PO 0.1 mg Q6H JAMES Administration Protocol Enoxaparin Sodium 40 mg 04/15/21 13:30 04/17/21 14:06 Enoxaparin Sodium 40 Mg/0.4 Ml Syringe SUBCUT 40 mg Q24H JAMES Administration Folic Acid 1 mg 04/16/21 09:00 04/18/21 08:05 Folic Acid 1 Mg Tablet PO 1 mg DAILY JAMES Administration Gabapentin 600 mg 04/15/21 15:00 04/18/21 08:13 Gabapentin 300 Mg Capsule PO 600 mg TID JAMES Administration Thiamine HCl 500 mg/ Sodium 105 mls @ 210 mls/hr 04/18/21 13:30 Chloride IV Q8H JAMES Medication 1 each 04/16/21 09:00 No Benzodiazepines MISCELLANE DAILY JAMES Multivitamins/Vitamin C 1 tab 04/16/21 09:00 04/18/21 08:13 Multivitamin Tablet PO 1 tab DAILY JAMES Administration Nicotine 21 mg 04/17/21 20:40 04/18/21 08:04 Nicotine 21 Mg Patch.Td24 TRANSDERMA 21 mg DAILY JAMES Administration Omeprazole 20 mg 04/16/21 06:30 04/18/21 05:18 Omeprazole 20 Mg Capsule. PO 20 mg DAILY@0630 JAMES Administration Ondansetron HCl 4 mg 04/15/21 13:26 Ondansetron Hcl 4 Mg/2 Ml Vial IVPUSH Q8H PRN Nausea and Vomiting Phenobarbital 30 mg 04/18/21 09:00 04/18/21 08:03 Phenobarbital 30 Mg Tablet PO 04/19/21 21:01 30 mg BID JAMES Administration Phenobarbital 30 mg 04/20/21 09:00 Phenobarbital 30 Mg Tablet PO 04/21/21 09:01 DAILY JAMES Pyridoxine HCl 50 mg 04/16/21 09:00 04/18/21 08:06 Pyridoxine Hcl (Vitamin B6) 50 Mg Tablet PO 50 mg DAILY JAMES Administration Sodium Chloride 3 ml 04/15/21 16:00 04/18/21 08:15 0.9 % Sodium Chloride Flush 3 Ml Syringe IVFLUSH Not Given QSHIFT JAMES Thiamine HCl 100 mg 04/16/21 09:00 04/18/21 08:06 Thiamine Hcl 100 Mg Tablet PO 100 mg DAILY JAMES Administration Labs CBC & Chem 7: 04/16/21 05:07 04/16/21 05:07 Assessment and Plan (1) Alcohol withdrawal: Status: Acute (2) Encephalopathy: Status: Acute Assessment and Plan: 45 year-old man with longstanding alcohol use disorder and history of multiple admissions for alcohol withdrawal including seizures who is admitted with alcohol withdrawal after a witnessed generalized seizure. # severe EtOH withdrawal with seizure, - phenobarbital taper, B vitamins, CARE Team and Addiction Medicine consultations--additional Phenobarb today Toxic metabolic encephalopathy-question [place] : Added IV thiamine. # neuropathy - gabapentin # VTE ppx - LMWH # code - FULL discharge tomorrow Assessment and Plan: 45 year-old man with longstanding alcohol use disorder and history of multiple admissions for alcohol withdrawal including seizures who is admitted with alcohol withdrawal after a witnessed generalized seizure. 1.severe EtOH withdrawal with seizure, - phenobarbital taper, B vitamins, CARE Team and Addiction Medicine consultations--additional Phenobarb today seems confused: Component of metabolic toxic encephalopathy probably related to alcohol question yecenia potter : added iv thiamine. 2.neuropathy - gabapentin 3. VTE ppx - LMWH Quality Stroke Does the patient have a stroke diagnosis?: No VTE Prior VTE?: No VTE Risk Level:: Medical - moderate - high VTE Device Contraindication: N/A - Device Ordered VTE Drug Contraindication: N/A - Med Ordered
[2021-04-18] MEDS: Enoxaparin Sodium 40 MG/0.4 ML SYRINGE SUBCUT (14:40)
[2021-04-18] MEDS: Thiamine HCL 500 MG in 0.9 % Sodium Chloride 100 ML 210 MG IV ×2 (14:41→21:30)
[2021-04-18] MEDS: PHENobarbitaL sodium 65 MG/ML VIAL 30 MG IM (14:41)
[2021-04-18] MEDS: 0.9 % Sodium Chloride Flush 3 ML SYRINGE IVFLUSH (14:42)
[2021-04-19] VITALS (11 sets, daily range): BP systolic 100–160; BP diastolic 60–81; PULSE 70–110; RESP 15–18; TEMP 36.4–37; O2SAT 97–100
[2021-04-19] MEDS: cloNIDine HCL 0.1 MG TABLET PO ×4 (02:28→19:49)
[2021-04-19] MEDS: 0.9 % Sodium Chloride Flush 3 ML SYRINGE IVFLUSH ×3 (02:36→17:03)
[2021-04-19] MEDS: Omeprazole 20 MG CAPSULE.DR PO (05:51)
[2021-04-19] MEDS: Thiamine HCL 500 MG in 0.9 % Sodium Chloride 100 ML 210 MG IV ×3 (05:52→21:27)
[2021-04-19 06:49] LABS: Ammonia 47 umol/L (13-55)
[2021-04-19 07:05] LABS: Blood Urea Nitrogen 9 mg/dL (9-16); Calcium 9.1 mg/dL (8.4-10.2); Creatinine Clr Calc Pharmacy 139.4; Estimated Glomerular Filt Rate > 60; Glucose Random 105 mg/dL (60-115)
[2021-04-19 07:21] LABS: Anion Gap 17 (12-20); Carbon Dioxide 18 mmol/L (22-29); Chloride 105 mmol/L (96-108); Potassium 4.6 mmol/L (3.3-5.1); Sodium 135 mmol/L (135-145)
[2021-04-19] MEDS: Gabapentin 300 MG CAPSULE 600 MG PO ×3 (10:19→21:26)
[2021-04-19] MEDS: Nicotine 21 MG PATCH.TD24 TRANSDERMA (10:19)
[2021-04-19] MEDS: Thiamine HCL 100 MG TABLET PO (10:21)
[2021-04-19] MEDS: PHENobarbitaL 30 MG TABLET PO ×2 (10:21→21:26)
[2021-04-19] MEDS: Multivitamin TABLET 1 TAB PO (10:21)
[2021-04-19] MEDS: Pyridoxine HCl (Vitamin B6) 50 MG TABLET PO (10:21)
[2021-04-19] MEDS: Folic Acid 1 MG TABLET PO (10:22)
[2021-04-19] MEDS: PHENobarbitaL sodium 65 MG/ML VIAL IM (12:33)
[2021-04-19] MEDS: Enoxaparin Sodium 40 MG/0.4 ML SYRINGE SUBCUT (12:35)
--- NOTE | 2021-04-19 14:46 | MHC.RECOVRN ---
T/w met with pt in 458 to follow up after being seen by Venessa Molina APRN, and t/w on 04/17. Pt speaking more clearly, aware of where he is and what brought him to the hospital. Pt plans to d/c tomorrow to return to live with his parents. Pts father has expressed concern to pt regarding his alcohol use. Pt reports drinking a lot prior to hospitalization. When asked to quantify, pt states imagine a pint glass filled with ice and being refilled all day. Pt unable to quantify further. Pt reports drinking excessively beginning in early 20s. Pt had lived in [place] for approx 10 years and attended a 30, 60, and 90 day program while there. Pt also participated in AA and had a sponsor. Pts longest period of recovery was 90 days. Pt is interested in restarting naltrexone but declines further referrals or supports. Pt does not wish to engage in AA or any other program at this time. Pt given t/w contact information if questions or concerns arise. Case discussed with Venessa Molina APRN, as well as pts RN.
--- NOTE | 2021-04-19 14:51 | HO.PM.IMPN ---
Subjective Subjective Date of Service: 04/19/21 Interval History: Alcohol withdrawal Review of Systems Patient seems more alert today, but has feeling sweaty and tremulous more than yesterday. Physical Exam Vital Signs: Vital Signs: Last Vital Signs Temp 98.6 F 04/19/21 11:21 Pulse 80 04/19/21 12:34 Resp 18 04/19/21 11:21 BP 114/65 04/19/21 12:34 Pulse Ox 99 04/19/21 11:21 Body Mass Index 26.4 Constitutional:? Not in acute distress Cvs: rrr, [id number] , no murmur res: clear to auscultation ,no rhonchii or wheezing abd: no rebound or guarding ,nt, bs present. ext pulses present , no cyanosis neuro: axo3 , nonfocal.somewhat confused Objective Data Current Medications Generic Name Dose Route Start Last Admin Trade Name Freq PRN Reason Stop Dose Admin Acetaminophen 650 mg 04/15/21 13:26 04/16/21 19:58 Acetaminophen 325 Mg Tablet PO 650 mg Q6H PRN Administration Pain, Mild (Pain Scale 1-3) Clonidine HCl 0.1 mg 04/15/21 13:30 04/19/21 12:34 Clonidine Hcl 0.1 Mg Tablet PO 0.1 mg Q6H JAMES Administration Protocol Enoxaparin Sodium 40 mg 04/15/21 13:30 04/19/21 12:35 Enoxaparin Sodium 40 Mg/0.4 Ml Syringe SUBCUT 40 mg Q24H JAMES Administration Folic Acid 1 mg 04/16/21 09:00 04/19/21 10:22 Folic Acid 1 Mg Tablet PO 1 mg DAILY JAMES Administration Gabapentin 600 mg 04/15/21 15:00 04/19/21 10:19 Gabapentin 300 Mg Capsule PO 600 mg TID JAMES Administration Thiamine HCl 500 mg/ Sodium 105 mls @ 210 mls/hr 04/18/21 14:00 04/19/21 06:32 Chloride IV Infused Q8H [facility] Infusion Medication 1 each 04/16/21 09:00 No Benzodiazepines MISCELLANE DAILY [facility] Multivitamins/Vitamin C 1 tab 04/16/21 09:00 04/19/21 10:21 Multivitamin Tablet PO 1 tab DAILY JAMES Administration Nicotine 21 mg 04/17/21 20:40 04/19/21 10:19 Nicotine 21 Mg Patch.[id number] TRANSDERMA 21 mg DAILY JAMES Administration Omeprazole 20 mg 04/16/21 06:30 04/19/21 05:51 Omeprazole 20 Mg Capsule. PO 20 mg DAILY@0630 JAMES Administration Ondansetron HCl 4 mg 04/15/21 13:26 Ondansetron Hcl 4 Mg/2 Ml Vial IVPUSH Q8H PRN Nausea and Vomiting Phenobarbital 30 mg 04/18/21 09:00 04/19/21 10:21 Phenobarbital 30 Mg Tablet PO 04/19/21 21:01 30 mg BID JAMES Administration Phenobarbital 30 mg 04/20/21 09:00 Phenobarbital 30 Mg Tablet PO 04/21/21 09:01 DAILY JAMES Pyridoxine HCl 50 mg 04/16/21 09:00 04/19/21 10:21 Pyridoxine Hcl (Vitamin B6) 50 Mg Tablet PO 50 mg DAILY JAMES Administration Sodium Chloride 3 ml 04/15/21 16:00 04/19/21 10:19 0.9 % Sodium Chloride Flush 3 Ml Syringe IVFLUSH 3 ml QSHIFT JAMES Administration Thiamine HCl 100 mg 04/16/21 09:00 04/19/21 10:21 Thiamine Hcl 100 Mg Tablet PO 100 mg DAILY JAMES Administration Labs CBC & Chem 7: 04/16/21 05:07 04/19/21 05:52 Labs: Laboratory Results - last 24 hr 04/19/21 04/19/21 05:52 05:52 Anion Gap 17 Estim Creat Clear Calc 139.4 Estimated GFR > 60 Random Glucose 105 Calcium 9.1 Ammonia 47 Assessment and Plan (1) Encephalopathy: Status: Acute (2) Alcohol use disorder, severe, dependence: Status: Acute Assessment and Plan: 45 year-old man with longstanding alcohol use disorder and history of multiple admissions for alcohol withdrawal including seizures who is admitted with alcohol withdrawal after a witnessed generalized seizure. 1. severe EtOH withdrawal with seizure, - phenobarbital taper, B vitamins, CARE Team and Addiction Medicine consultations--additional Phenobarb Im today Toxic metabolic encephalopathy-question Wernicke :seems imrpoving -? continue IV thiamine, switch to po thiamine . 2. neuropathy - gabapentin 3. VTE ppx - LMWH Quality Stroke Does the patient have a stroke diagnosis?: No VTE Prior VTE?: No VTE Risk Level:: Medical - moderate - high VTE Device Contraindication: N/A - Device Ordered VTE Drug Contraindication: N/A - Med Ordered
--- NOTE | 2021-04-19 15:33 | MHC.CM.PN ---
per rounds dc expected in 1 to 2 days pt continuing to withdraw
[2021-04-20] MEDS: 0.9 % Sodium Chloride Flush 3 ML SYRINGE IVFLUSH ×2 (01:13→09:09)
[2021-04-20] MEDS: cloNIDine HCL 0.1 MG TABLET PO ×3 (01:13→13:06)
[2021-04-20 03:10] VITALS: BP 139/79; PULSE 85; RESP 16; TEMP 36.6; O2SAT 100
[2021-04-20] MEDS: Omeprazole 20 MG CAPSULE.DR PO (05:46)
[2021-04-20] MEDS: Thiamine HCL 500 MG in 0.9 % Sodium Chloride 100 ML 210 MG IV ×2 (05:46→13:05)
[2021-04-20 07:15] LABS: Anion Gap 13 (12-20); Blood Urea Nitrogen 13 mg/dL (9-16); Carbon Dioxide 23 mmol/L (22-29); Chloride 104 mmol/L (96-108); Estimated Glomerular Filt Rate > 60; Glucose Random 102 mg/dL (60-115); Potassium 4.1 mmol/L (3.3-5.1); Sodium 136 mmol/L (135-145)
[2021-04-20 07:31] VITALS: BP 130/75; PULSE 88; RESP 17; TEMP 37.1; O2SAT 100
[2021-04-20 09:09] VITALS: BP 130/75; PULSE 88
[2021-04-20] MEDS: PHENobarbitaL 30 MG TABLET PO (09:09)
[2021-04-20] MEDS: Pyridoxine HCl (Vitamin B6) 50 MG TABLET PO (09:09)
[2021-04-20] MEDS: Nicotine 21 MG PATCH.TD24 TRANSDERMA (09:09)
[2021-04-20] MEDS: Gabapentin 300 MG CAPSULE 600 MG PO (09:09)
[2021-04-20] MEDS: Folic Acid 1 MG TABLET PO (09:09)
[2021-04-20] MEDS: Thiamine HCL 100 MG TABLET PO (09:09)
[2021-04-20] MEDS: Multivitamin TABLET 1 TAB PO (09:09)
[2021-04-20 11:25] VITALS: BP 109/63; PULSE 110; RESP 18; TEMP 36.8; O2SAT 100
[2021-04-20 13:06] VITALS: BP 109/63; PULSE 110
[2021-04-20] MEDS: Enoxaparin Sodium 40 MG/0.4 ML SYRINGE SUBCUT (13:06)
--- NOTE | 2021-04-20 14:00 | PM.DS ---
DS: Providers Provider Date of Service: 04/20/21 Date of admission: 04/15/21 13:26 Primary care physician: Narciso Aguilar MD Consults: 04/15/21 11:12 Addiction Medicine Routine Consulting Provider: Venessa Molina Reason for consultation: EtOH Consult to Care Team Routine Comment: Reason for consultation: ETOH DS: Diagnosis Discharge Diagnosis (1) Encephalopathy: Status: Acute (2) Alcohol use disorder, severe, dependence: Status: Acute DS: Medications Discharge Medications Home Medications: Home Medications Medication Instructions Recorded Confirmed clonidine HCl 0.1 mg tablet 1 tab PO Q6H 04/15/21 04/15/21 folic acid 1 mg tablet 1 tab PO DAILY 04/15/21 04/15/21 gabapentin 300 mg capsule 2 cap PO TID 04/15/21 04/15/21 naltrexone 50 mg tablet 1 tab PO BEDTIME 04/15/21 04/15/21 pantoprazole 40 mg tablet,delayed 1 tab PO DAILY 04/15/21 04/15/21 release pyridoxine (vitamin B6) 50 mg 50 mg PO DAILY 04/15/21 04/15/21 tablet (Vitamin B-6) thiamine HCl (vitamin B1) 100 mg 100 mg PO DAILY 04/15/21 04/15/21 tablet DS: Summary Hospital Course Hospital Course: Patient was admitted for severe alcohol dependence with withdrawal complicated by alcohol withdrawal seizure. He was given phenobarbital taper. He was seen by addiction team recommended restarting naltrexone. Course was complicated by encephalopathy possibly due to Wernickes. He was given thiamine and other B vitamins. Mental status slowly improved, as did withdrawal symptoms. Today patient is feeling much better will be discharged home. He is motivated to stop drinking and will follow up with his primary care doctor. Time Spent with Patient Time attestation: Total time spent providing and/or coordinating discharge services: Discharge coordination time: Greater than 30 minutes Quality: Stroke Does the patient have a stroke diagnosis?: No Physical Exam Vital Signs: Vital Signs: Last Vital Signs Temp 98.2 F 04/20/21 11:25 Pulse 110 H 04/20/21 13:06 Resp 18 04/20/21 11:25 BP 109/63 04/20/21 13:06 Pulse Ox 100 04/20/21 11:25 Body Mass Index 26.4 General: AO X 3, no acute distress Resp: CTA bilateral CVS: S1,S2,RRR GI: soft, non tender, non distended Neuro: motor grossly intact Psych: appropriate affect DS: Data Data Completed and Pending Labs on day of discharge: Laboratory Results - last 24 hr 04/20/21 05:41 Sodium 136 Potassium 4.1 Chloride 104 Carbon Dioxide 23 Anion Gap 13 BUN 13 Creatinine 0.79 Estim Creat Clear Calc 127.0 Estimated GFR > 60 Random Glucose 102 Calcium 9.0 Discharge Plan Discharge Patient Disposition: Home, Self-Care Discharge Diagnosis: alcohol withdrawal Referrals: Narciso Aguilar MD [Primary Care Provider] - 1 Week Discharge Medications: Continued clonidine HCl 0.1 mg tablet 1 tab PO Q6H RF: 0 pyridoxine (vitamin B6) [Vitamin B-6] 50 mg Tablet 50 mg PO DAILY RF: 0 gabapentin 300 mg capsule 2 cap PO TID RF: 0 folic acid 1 mg tablet 1 tab PO DAILY RF: 0 naltrexone 50 mg tablet 1 tab PO BEDTIME RF: 0 thiamine HCl (vitamin B1) 100 mg Tablet 100 mg PO DAILY RF: 0 pantoprazole 40 mg tablet,delayed release (DR/EC) 1 tab PO DAILY RF: 0 Discharge Orders: Discharge Order (Routine); Ordered 04/20/21 Ordered By: Manjit Sanchez Diet: advance to usual diet Activity on Discharge: As tolerated Stand Alone Forms: Patient Portal Discharge page Care Plan Goals: recovery Health Concerns: ETOH Plan of Treatment: avoid alcohol, follow up with pcp Assessment: see above
--- NOTE | 2021-04-20 14:07 | MHC.CM.PN ---
PT CLEARED TO DC HOME TODAY WITH NO SERVICES PARENT TO TRANSPORT
== END 2021-04-20 15:20 | disposition home or self-care (01) | DRG 775 ==
LOC: HO.ED 10:07 → HO.EDOVER 13:50 → HO.IMC 15:30
PROVIDERS: Admitting Provider Family Medicine; Emergency Provider Emergency Medicine; PCP Internal Medicine; Visit Provider Internal Medicine
DX: F10.239 Alcohol dependence with withdrawal, unspecified (principal); R56.9 Unspecified convulsions; E83.42 Hypomagnesemia; E51.2 Wernicke's encephalopathy; G62.1 Alcoholic polyneuropathy; F17.210 Nicotine dependence, cigarettes, uncomplicated; Z20.822 Contact with and (suspected) exposure to COVID-19; Z71.6 Tobacco abuse counseling; Z79.899 Other long term (current) drug therapy
CPT/HCPCS: 0241U; 36415; 70450; 71045; 80048; 80076; 80307; 81003; 82077; 82140; 83690; 83735; 85025; 85027; 93005; 96361; 96372; 96374; 96375; 99285; J1650; J2060; J2405; J2560; J3411; J3475